=== PATIENT | female | born 1955 | race Caucasian/White ===

== ENCOUNTER 2018-08-15 12:13 | Inpatient (IN) | payer MEDICARE, OTHER ==
[~2018-08-15] VITALS: Ht 162.6 cm; Wt 114.1 kg
[~2018-08-15 12:13] MED LIST: ABILIFY5 MG PO; CATAPRES 0.1MG0.1 MG PO; CLEOCIN HCL300 MG PO; FLEXERIL 1010 MG/TAB PO; HCTZ 25MG TAB25 MG PO; MOBIC15 MG PO; NEXIUM 40MG40 MG PO; NORVASC 10MG10 MG PO; NORVASC 5MG5 MG/TAB PO; NYSTOP TOP; TOPROL XL100 MG PO; VIIBRYD20 MG PO; VITAMIN D 50,1.25 MG PO; ZOCOR 20MG20 MG PO
[2018-08-15 12:47] LABS: BASO % 0.5 % (0.0-2.0); EOS # 0.2 (0.0-0.7); EOS % 2.2 % (0-4.0); GRAN # 4.1 (1.4-6.5); GRAN % 47.6 % (42.2-75.2); HEMATOCRIT 40.9 % (37.0-47.0); HEMOGLOBIN 13.2 g/dl (12.5-16.0); LYMPH # 3.6 (1.2-3.4); LYMPH % 41.7 % (20.0-51.0); MEAN CELL VOLUME 91 fl (80.0-100.0); MEAN CORPUSCULAR HEMOGLOBIN 29 pg (27.0-31.0); MEAN CORPUSCULAR HGB CONC 32 g/dl (33.0-37.0); MEAN PLATELET VOLUME 9.3 fl (7.4-10.4); MONO # 0.6 (0.1-0.6); MONO % 6.6 % (1.7-9.3); PLATELET COUNT 372 K/mm3 (130-400); REDCELL DISTRIBUTION WIDTH-CV 14.6 % (11.5-14.5)
[2018-08-15 12:58] LABS: INR 1.1 (0.8-3.0); PROTHROMBIN TIME 12.1 SECONDS (9.7-12.8)
[2018-08-15 12:59] LABS: ALANINE AMINOTRANSFERASE < 6 U/L (9-52); ALKALINE PHOSPHATASE 79 U/L (50-136); ANION GAP 17 mmol/L (7-16); AST,SGOT 21 U/L (15-37); BILIRUBIN,TOTAL 0.6 mg/dL (0.0-1.0); BLOOD UREA NITROGEN 21 mg/dL (7-17); CALCIUM 9.8 mg/dL (8.4-10.2); CARBON DIOXIDE 20 mmol/L (22-30); CHLORIDE 102 mmol/L (98-107); CREATININE, serum 0.96 (0.52-1.25); GLUCOSE 125 mg/dL (74-106); POTASSIUM 3.5 mmol/L (3.4-5.0); SODIUM 139 mmol/L (137-145); TOTAL PROTEIN 7.8 gm/dL (6.4-8.2)
[2018-08-15 13:13] LABS: C-REACTIVE PROTEIN 1.4 mg/dL (0.0-0.9)
[2018-08-15 13:14] LABS: TROPONIN-I < 0.012 ng/mL (0.000-0.035)
[2018-08-15] MEDS ORDERED: MOBIC 7.5MG7.5 MG PO (13:19)
[2018-08-15 13:41] LABS: TSH w REFLEX 1.98 uIU/mL (0.465-4.680)
[2018-08-15 13:41] LABS: COLLECTION METHOD CATHETER
[2018-08-15 13:52] LABS: MUCOUS Present /lpf; PH 6 (5-8); SQUAMOUS EPITHELIAL 0-2 /hpf; URINE APPEARANCE Cloudy; URINE BACTERIA None Seen /hpf; URINE BILIRUBIN Negative (NEGATIVE); URINE BLOOD 1+ (NEGATIVE); URINE COLOR Yellow; URINE GLUCOSE Negative (NEGATIVE); URINE KETONE Negative (NEGATIVE); URINE LEUKOCYTE ESTERASE Negative (NEGATIVE); URINE NITRATE Negative (NEGATIVE); URINE PROTEIN(semi-quant) 2+ (NEGATIVE); URINE UROBILINOGEN Negative (NEGATIVE)
[2018-08-15] MEDS ORDERED: FLEXERIL 1010 MG/TAB PO (17:50)
[2018-08-15] MEDS ORDERED: CATAPRES 0.1MG0.1 MG PO (17:51)
[2018-08-15 18:17] VITALS: BP 153/90; PULSE 93; TEMP 98.3
--- NOTE | 2018-08-15 18:25 | NUR ---
Pt arrived to room 354 at this time, family at bedside. Pt is A/O x3. Neuro checks intact, bilateral eyes 6mm and react equally. Seizure precautions initiated. Pt denies any pain at this time. No N/V. Pt denies any SOB. IVF infusing into [place] without complications. POC discussed with family who verbalize understanding. Call light within reach.
[2018-08-15 19:18] VITALS: BP 155/88; PULSE 105; TEMP 98.1
[2018-08-16] VITALS (7 sets, daily range): BP systolic 125–155; BP diastolic 59–90; PULSE 73–110; TEMP 98.1–98.8
--- NOTE | 2018-08-16 00:41 | NUR ---
Patient assessed around 2024. Has denied having pain and discomfort so far this shift. No seizure like activity noted. Seizure precautions are in place. No tremors noted. LS CTA. Respirations even and unlabored. HRR. BSAx4. Peripheral IV to right wrist patent. Site is without redness, warmth, swelling, and pain. NS running at 125 ml/hr at this time. Patient is NPO after midnight. Voices no needs or concerns at this time. Resting in bed with eyes closed at this time. Call light is within reach.
--- NOTE | 2018-08-16 05:08 | NUR ---
IV site to right wrist infiltrated, causing edema to right hand, around 0230. IV stopped, and elevated hand. Unable to start new IV. Called overnight houseperson and requsted assistance. broiler supervisor started new IV to left chest. NS running at 125 ml/hr per orders. Voices no other needs or concerns at this time. Denies having pain and discomfort. One person SBA with ambulation to bathroom. Does not use assistive devices. Neuro checks have been WNL for patient. Continues on seizure and fall precautions. Resting in bed with eyes closed at this time. Call light is within reach.
[2018-08-16 06:54] LABS: BASO # 0.1 (0.0-0.2); BASO % 0.7 % (0.0-2.0); EOS # 0.2 (0.0-0.7); EOS % 2.1 % (0-4.0); GRAN # 4.1 (1.4-6.5); GRAN % 53.9 % (42.2-75.2); HEMATOCRIT 37.7 % (37.0-47.0); HEMOGLOBIN 12.1 g/dl (12.5-16.0); LYMPH # 2.7 (1.2-3.4); LYMPH % 35.8 % (20.0-51.0); MEAN CELL VOLUME 91 fl (80.0-100.0); MEAN CORPUSCULAR HEMOGLOBIN 29 pg (27.0-31.0); MEAN CORPUSCULAR HGB CONC 32 g/dl (33.0-37.0); MEAN PLATELET VOLUME 9.6 fl (7.4-10.4); MONO # 0.5 (0.1-0.6); MONO % 6.8 % (1.7-9.3); PLATELET COUNT 359 K/mm3 (130-400); RED BLOOD COUNT 4.15 M/mm3 (4.10-5.30); REDCELL DISTRIBUTION WIDTH-CV 14.9 % (11.5-14.5)
[2018-08-16 07:07] LABS: CALCIUM 9.3 mg/dL (8.4-10.2); CHOLESTEROL RISK RATIO 3.5; CREATININE, serum 0.76 (0.52-1.25); POTASSIUM 3.3 mmol/L (3.4-5.0)
--- NOTE | 2018-08-16 08:45 | NUR ---
Pt is awake and A/Ox4, denies pain at this time. IVF are infusing at this time without difficulty into left upper chest. Pt is up to restroom with SBA without any difficulty. Denies dizziness. Pt refusing lumbar punture at this time, states she would like to speak with before making a decision as she is not clear why the doctors want this test done. Pt denies any other needs. Will monitor.
--- NOTE | 2018-08-16 12:22 | NUR ---
Initial visit: Patient thanked Lead Clinical Research Coordinator for looking in on her and offering comfort and prayers. Lead Clinical Research Coordinator will follow up.
--- NOTE | 2018-08-16 14:39 | NUR ---
SW attended clinical rounds to disucss discharge planning and readmission. Patient lives at home with her daughter. Patient was supposed to have her follow up appoitment with Dr Schmitt at the [facility] today. Patient reports when she was discharged last week, she filled the prescribed medications and took them as prescribed. Patient does not use any DME of home health services. Patient does have a [facility]PO[facility] and a copy is in the chart. SW does not anticipate any discharge needs but will follow as needed.
--- NOTE | 2018-08-16 20:45 | NUR ---
Shift assessment complete. Patient in bed, awake. Denies pain. IV in left chest flushed with NS, patent. Denies further needs at this time.
[2018-08-17 03:26] VITALS: BP 151/88; PULSE 98; TEMP 98.6
--- NOTE | 2018-08-17 06:09 | NUR ---
Patient in bed, awake. Denies pain. Denies further needs at this time. Will continue to assess.
--- NOTE | 2018-08-17 07:47 | NUR ---
Assessment completed, alert/oriented, vital signs stable, denies any pain or discomfort, denies any changes/ or new symptoms overnight, NO neuro deficits noted, heart RRR, lungs CTA, she has given written consent for Lumbar Puncture this morning and will go down for this around 0800, She ambulated to the bathroom with stand by assist and has no deficits noted, she is now sitting up in bed eating breakfast and has taken her morning meds, denies othr needs at this time, seiz p/c in place
[2018-08-17 08:03] VITALS: BP 140/70; PULSE 96; TEMP 99
--- NOTE | 2018-08-17 09:35 | NUR ---
patient is down in radiology having a lumbar puncture done
[2018-08-17 10:46] LABS: GLUCOSE,CSF 59 mg/dL (40-70); TOTAL PROTEIN,CSF 29 mg/dL (15-45)
[2018-08-17 11:04] LABS: CSF APPEARANCE CLEAR; CSF COLOR COLORLESS
[2018-08-17 11:05] LABS: CSF MONONUCLEAR 100 % (70-100); CSF POLYMORPHONUCLEAR 0 % (0-6); CSF RBC 1 /mm3 (0-0)
[2018-08-17 11:28] VITALS: BP 144/87; PULSE 88; TEMP 98.1
--- NOTE | 2018-08-17 12:16 | NUR ---
Follow-up visit; Patient thanked Tattoo And Body Artist for looking in on her again today. Tattoo And Body Artist listened and offered encouragement and God's blessings.
[2018-08-17 14:48] LABS: CALCIUM 9.7 mg/dL (8.4-10.2); CREATININE, serum 0.9 (0.52-1.25); MAGNESIUM 2.1 mg/dL (1.6-2.3); POTASSIUM 3.6 mmol/L (3.4-5.0)
[2018-08-17] MEDS ORDERED: ASPIRIN E.C. 8181 MG PO (15:59)
[2018-08-17] MEDS ORDERED: DIAMOX 250MG250 MG PO (16:04)
--- NOTE | 2018-08-17 17:00 | NUR ---
Discharge instructions reviewed with patient, instructed to follow up with PCP and Neuro as we have scheduled for her, instructed to take medicaitons as prescribe/ discussed med changes and new meds, IV and tele removed, she is leaving with her daughter, I personally escorted her out by wheelchair
== END 2018-08-17 17:00 | disposition home or self-care (01) | DRG 103 ==
LOC: COL.ER 12:13 → MEDICAL 16:13
PROVIDERS: Emergency Medicine; Physician Assistant; Psychiatry & Neurology Neurology; ADMIT Hospitalist
PROC: 009U3ZX Drainage of Spinal Canal, Percutaneous Approach, Diagnostic (ICD-10-PCS; principal; 2018-08-17)
DX: G93.2 Benign intracranial hypertension (principal); Z68.41 Body mass index [BMI] 40.0-44.9, adult; E87.2 Acidosis; I10 Essential (primary) hypertension; E78.5 Hyperlipidemia, unspecified; M79.7 Fibromyalgia; K21.9 Gastro-esophageal reflux disease without esophagitis; G43.909 Migraine, unspecified, not intractable, without status migrainosus; F17.210 Nicotine dependence, cigarettes, uncomplicated; E66.01 Morbid (severe) obesity due to excess calories; F32.9 Major depressive disorder, single episode, unspecified; E87.6 Hypokalemia
CPT/HCPCS: 99232-AI; 99239; J7030; Q9967

== ENCOUNTER → 2018-08-24 | Outpatient (CLI) | payer MEDICARE ==
[~2018-08-24] MED LIST changes: +ASPIRIN E.C. 8181 MG PO; +DIAMOX 250MG250 MG PO; +MOBIC 7.5MG7.5 MG PO
== END ==
LOC: ZCOL.LAB 15:53
DX: E55.9 Vitamin D deficiency, unspecified (principal)

== ENCOUNTER → 2018-12-21 | Outpatient (CLI) | payer MEDICARE, MEDICAID | LOC: COL.LAB 09:38 | DX: E55.9 Vitamin D deficiency, unspecified (principal) ==

== ENCOUNTER → 2019-02-23 | Outpatient (CLI) | payer MEDICARE, MEDICAID | LOC: COL.LAB 11:42 | DX: E55.9 Vitamin D deficiency, unspecified (principal) ==

== ENCOUNTER → 2019-02-23 | Outpatient (CLI) | payer MEDICARE, MEDICAID | LOC: MC.RAD 11:15 | DX: Z12.31 Encounter for screening mammogram for malignant neoplasm of breast (principal) ==

== ENCOUNTER → 2021-02-07 | Outpatient (CLI) | payer MEDICARE, MEDICAID | LOC: COL.RAD 13:57 | DX: J18.1 Lobar pneumonia, unspecified organism (principal); Z87.891 Personal history of nicotine dependence ==

== ENCOUNTER → 2021-06-05 | Outpatient (CLI) | payer MEDICARE, MEDICAID | LOC: MC.RAD 10:37 | DX: Z12.31 Encounter for screening mammogram for malignant neoplasm of breast (principal) ==

== ENCOUNTER → 2023-03-31 | Outpatient (CLI) | payer MEDICARE, MEDICAID | LOC: COL.RAD 12:44 | DX: Z12.2 Encounter for screening for malignant neoplasm of respiratory organs (principal); F17.201 Nicotine dependence, unspecified, in remission ==